=== PATIENT | female | born 1975 | race African-American/Black ===

== ENCOUNTER 2018-06-21 15:59 | Emergency (ER) | payer MEDICAID ==
[~2018-06-21] VITALS: Ht 162.6 cm; Wt 79.5 kg
[2018-06-21 16:16] VITALS: Ht 162.6 cm; Wt 79.5 kg
[2018-06-21] MEDS ORDERED: GLUCOPHAGE1000 MG PO (16:18)
[2018-06-21] MEDS ORDERED: PRINIVIL20 MG (16:18)
[2018-06-21] MEDS ORDERED: LANTUS INSULIN10 ML SC (16:18)
[2018-06-21] MEDS ORDERED: NOVOLOG100 UNIT/1 SC (16:18)
[2018-06-21] MEDS ORDERED: CYCLOBENZAPRINE10 MG (16:19)
[2018-06-21] MEDS ORDERED: PROTONIX20 MG (16:19)
[2018-06-21] MEDS ORDERED: TORADOL10 MG PO (20:06)
[2018-06-21 20:36] VITALS: BP 132/79
== END 2018-06-21 20:37 | disposition home or self-care (01) ==
LOC: D.ER 15:59
DX: R07.89 Other chest pain (principal); W19.XXXA Unspecified fall, initial encounter